=== PATIENT | male | born 1940 | race Caucasian/White ===

== ENCOUNTER 2017-11-20 20:16 | Inpatient (IN) | payer MEDICARE, BC ==
[~2017-11-20] VITALS: Ht 170.2 cm; Wt 61.9 kg
--- NOTE | 2017-11-20 20:20 | NUR ---
TO BED 7 A 77 YO MALE PT BIBA#[id number] FROM HOME FOR CONSTIPATION X 20 HOURS. PATIENT IS ALERT AND RESPONSIVE, VSS. NAD NOTED. NONDIAPHORETIC. GOWNED COMFORT MEASURES RENDERED.
[2017-11-20] MEDS ORDERED: IV NS 0.9% 1,000 ML BAG IV ONE (20:30)
--- NOTE | 2017-11-20 20:40 | NUR ---
STARTED A SALINE LOCK ON THE LAC G18, BLOOD DRAWN AND SENT TO LAB.
[2017-11-20 20:47] LABS: BASOPHILS # (AUTO) 0.1 /CMM (0.0-0.2); BASOPHILS % (AUTO) 0.7 % (0.0-2.0); EOSINOPHILS % (AUTO) 0.3 % (0.0-6.0); HEMATOCRIT 47 % (39-51); HEMOGLOBIN 16.2 g/dL (13.5-17.5); LYMPHOCYTES # (AUTO) 1.1 /CMM (0.8-4.8); LYMPHOCYTES % (AUTO) 8.4 % (20.0-44.0); MEAN CORPUSCULAR HEMOGLOBIN 29 PG (26.0-33.0); MEAN CORPUSCULAR HGB CONC 35 g/dl (31.0-36.0); MEAN CORPUSCULAR VOLUME 84 fL (80-96); MONOCYTES # (AUTO) 0.8 /CMM (0.1-1.30); NEUTROPHILS # (AUTO) 10.6 /CMM (1.8-8.9); NEUTROPHILS % (AUTO) 84.6 % (43.0-81.0); PLATELET COUNT (AUTO) 335 /CMM (150-450); RDW COEFFICIENT OF VARIATION 12.8 (11.5-15.0); RED BLOOD CELL COUNT(AUTO) 5.52 MIL/uL (4.5-6.0); WHITE BLOOD COUNT (AUTO) 12.6 K/uL (4.3-11.0)
[2017-11-20 20:57] LABS: CALCIUM, SERUM 8.7 mg/dL (8.5-10.1); CARBON DIOXIDE 25 mmol/L (21-32); CHLORIDE 87 mmol/L (98-107); CREATININE 0.6 mg/dL (0.6-1.3); GLUCOSE 128 mg/dL (74-106); POTASSIUM 3.8 mmol/L (3.5-5.1); UREA NITROGEN, BLOOD 4 mg/dL (7-18)
[2017-11-20 20:59] LABS: INR 0.94 (0.85-1.15); SODIUM SERUM 120 mmol/L (136-145)
[2017-11-20 21:05] LABS: TROPONIN I < 0.017 ng/mL (0.00-0.056)
[2017-11-20 21:12] LABS: APPEARANCE,URINE Clear (CLEAR); BILIRUBIN,URINE Negative (NEGATIVE); BLOOD, URINE Trace-intact Ery/uL (NEGATIVE); COLOR,URINE Yellow (YELLOW); KETONES,URINE Trace (NEGATIVE); LEUKOCYTE ESTERASE ,URINE Negative (NEGATIVE); NITRITE, URINE Negative (NEGATIVE); PH,URINE 7.5 (5.0-8.0); PROTEIN,URINE Negative (NEGATIVE); UGLUCOSE Negative (NEGATIVE); UROBILINOGEN,URINE 0.2 EU/dL (0.2)
[2017-11-20 21:25] LABS: ALANINE AMINOTRANSFERASE 31 U/L (12-78); ALBUMIN 4.1 g/dL (3.4-5.0); ALKALINE PHOSPHATASE 106 U/L (46-116); ASPARTATE AMINOTRANSFERASE 39 U/L (15-37); BILIRUBIN,DIRECT 0.2 mg/dL (0.0-0.2); BILIRUBIN,TOTAL 1.1 mg/dL (0.2-1.0); LIPASE 130 U/L (73-393); TOTAL PROTEIN, SERUM 7.1 g/dL (6.4-8.2)
[2017-11-20 21:27] LABS: BACTERIA,URINE None seen /HPF (None Seen); SQUAMOUS EPITHELIAL CELL,UR Few /HPF (None Seen); WBC,URINE 0-2 /HPF (0-3)
[2017-11-20] MEDS ORDERED: ASPI-1169 PO (21:50)
--- NOTE | 2017-11-20 21:54 | NUR ---
Report given to Pili MCCARTHY for admission and ulises.
[2017-11-20 22:00] VITALS: BP 136/77
--- NOTE | 2017-11-20 22:05 | NUR ---
TELE/RN NOTES RECEIVED PT. FROM ER VIA [facility]. PT. IS AWAKE, ALERT AND ORIENTED X 2-3. BREATHING EVEN AND UNLABORED ON ROOM AIR. NO SOB, RESPIRATORY DISTRESS OR COMPLAINTS OF PAIN NOTED AT THIS TIME. ORIENTED PT. TO ROOM. PLACED EXTERNAL MODEL HOME SALES GREETER ON PT. CURRENT RHYTHM = SINUS RHYTHM WITH PAC'S HR 73. PT. WITH LEFT AC 18 GAUGE IV SALINE LOCK PRESENT, PATENT AND INTACT. AWAITING ADMITTING ORDERS. BED LOCKED AND IN LOWEST POSITION, SIDE RAILS UP X3, BED ALARM ON, CALL LIGHT WITHIN REACH, WILL CONTINUE TO MONITOR.
--- NOTE | 2017-11-20 22:06 | NUR ---
Transferred patient to tele bed via als protocol, no incident noted.
[2017-11-20] MEDS ORDERED: hydrALAZINE HCL 25 MG TABLET PO PRN (23:00)
[2017-11-20] MEDS ORDERED: ENOXAPARIN SODIUM 40 MG/0.4 ML DISP.SYRIN SQ SCH (23:00)
[2017-11-20] MEDS ORDERED: ACETAMINOPHEN 325 MG TABLET PO PRN (23:00)
[2017-11-20] MEDS ORDERED: MAG HYDROX/AL HYDROX/SIMETH 30 ML UDC PO PRN (23:00)
[2017-11-20] MEDS ORDERED: MAGNESIUM HYDROXIDE 30 ML UDC PO PRN (23:00)
[2017-11-20] MEDS ORDERED: ZOLPIDEM TARTRATE 5 MG TABLET PO PRN (23:00)
[2017-11-20] MEDS ORDERED: Z GUARD REMEDY 2 OZ OINT TP PRN (23:00)
[2017-11-20] MEDS ORDERED: ONDANSETRON HCL/PF 4 MG/2 ML VIAL IVP PRN (23:00)
[2017-11-20] MEDS ORDERED: HYDROCODONE/APAP 5/325MG 1 EACH TABLET PO PRN (23:00)
--- NOTE | 2017-11-20 23:05 | NUR ---
TELE/RN NOTES PT. IS REFUSING PICTURES TO BE TAKEN AT THIS TIME. PT. STATES HE DOESN'T WANT TO BE BOTHERED HE JUST WANTS TO BE LEFT ALONE SO HE CAN SLEEP. WILL ATTEMPT AGAIN AT A LATER TIME. WILL CONTINUE TO MONITOR.
[2017-11-20] MEDS ORDERED: ALBUTEROL FS 2.5 MG/3 ML VIAL.NEB NEB PRN (23:30)
[2017-11-21] VITALS (7 sets, daily range): BP systolic 127–141; BP diastolic 72–81
[2017-11-21] MEDS ORDERED: ENOXAPARIN SODIUM 40 MG/0.4 ML DISP.SYRIN SQ ONE
[2017-11-21] MEDS: IV NS 0.9% 1,000 ML IV PRN ×2 (00:11→17:52)
--- NOTE | 2017-11-21 06:13 | NUR ---
TELE/RN NOTES PT. IS LYING IN BED RESTING. BREATHING EVEN AND UNLABORED ON ROOM AIR. NO SOB, RESPIRATORY DISTRESS OR COMPLAINTS OF PAIN NOTED AT THIS TIME AND THROUGHOUT SHIFT. PT. WITH EXTERNAL POLLUTION CONTROL ENGINEER PRESENT AND INTACT. CURRENT RHYTHM = SINUS RHYTHM HR 80. PT. WITH LEFT AC 18 GAUGEPERIPHERAL IV PRESENT, PATENT AND INTACT. ALL PT. NEEDS MET. BED LOCKED AND IN LOWEST POSITION, SIDE RAILS UP X3, BED ALARM ON, CALL LIGHT WITHIN REACH, WILL ENDORSE TO DAYSHIFT NURSE FOR CONTINUITY OF CARE.
--- NOTE | 2017-11-21 07:00 | NUR ---
MS/RN OPENING NOTE RECEIVED PATIENT IN BED AWAKE. ALERT AND ORIENTED X3. RESPIRATION REGULAR AND UNLABORED. DENIES SOB, PAIN AT THIS TIME. IN NO APPARENT DISTRESS. LEFT ARM G 22 PATENT. PATIENT NPO SINCE DUE TO SCHEDULED NPO. EXPECTING WALLET ASSEMBLER GOING TO OR AT 0730. BED LOW AND LOCKED. SIDE RAIL UP X2. CALL LIGHT WITHIN REACH. WILL CONTINUE TO MONITOR. Addendum: 11/21/17 at 0809 by DANIEL BANDA RN THE NOTE WAS ENTERED ON A WRONG PATIENT
[2017-11-21 07:11] LABS: BASOPHILS % (AUTO) 0.2 % (0.0-2.0); EOSINOPHILS # (AUTO) 0.1 /CMM (0.0-0.7); EOSINOPHILS % (AUTO) 1.1 % (0.0-6.0); HEMATOCRIT 40 % (39-51); HEMOGLOBIN 13.9 g/dL (13.5-17.5); LYMPHOCYTES % (AUTO) 12.4 % (20.0-44.0); MEAN CORPUSCULAR HEMOGLOBIN 30 PG (26.0-33.0); MEAN CORPUSCULAR HGB CONC 35 g/dl (31.0-36.0); MEAN CORPUSCULAR VOLUME 86 fL (80-96); MONOCYTES # (AUTO) 0.7 /CMM (0.1-1.30); MONOCYTES % (AUTO) 8.8 % (2.0-12.0); NEUTROPHILS % (AUTO) 77.5 % (43.0-81.0); PLATELET COUNT (AUTO) 289 /CMM (150-450); RED BLOOD CELL COUNT(AUTO) 4.61 MIL/uL (4.5-6.0); WHITE BLOOD COUNT (AUTO) 7.7 K/uL (4.3-11.0)
--- NOTE | 2017-11-21 07:30 | NUR ---
TELE/RN OPENING NOTE RECEIVED PATIENT IN BED AWAKE. ALERT AND ORIENTED X3. DENIES SOB, PAIN AT THIS TIME. RESPIRATION REGULAR AND UNLABORED. THE PATIENT IN NO APPARENT DISTRESS. LAC G 18 PATENT AND IV INFUSING WITH NO S/S INFILTRATION. BED LOW AND LOCKED. SIDE RAIL UP X3. CALL LIGHT WITHIN REACH. WILL CONTINUE TO MONITOR.
[2017-11-21] MEDS ORDERED: DUTA0.5C15 PO (07:32)
[2017-11-21 07:33] LABS: THYROID STIMULATING HORMONE 1.949 uIU/mL (0.358-3.74)
[2017-11-21 07:42] LABS: CALCIUM, SERUM 7.9 mg/dL (8.5-10.1); CARBON DIOXIDE 23 mmol/L (21-32); CHLORIDE 97 mmol/L (98-107); CREATININE 0.6 mg/dL (0.6-1.3); GLUCOSE 103 mg/dL (74-106); MAGNESIUM 1.9 mg/dL (1.8-2.4); PHOSPHORUS 2.6 mg/dL (2.5-4.9); POTASSIUM 3.6 mmol/L (3.5-5.1); SODIUM SERUM 129 mmol/L (136-145); UREA NITROGEN, BLOOD 4 mg/dL (7-18)
[2017-11-21] MEDS ORDERED: ALBUTEROL FS 2.5 MG/3 ML VIAL.NEB ONE (08:05)
[2017-11-21] MEDS: SENNOSIDES/DOCUSATE SODIUM 1 TAB TABLET PO SCH (08:32)
[2017-11-21] MEDS: ASPIRIN 81 MG TAB.CHEW PO SCH (08:33)
[2017-11-21] MEDS: BOOST PLUS FOOD-VANILLA 237 ML BOX PO SCH ×2 (08:43→17:53)
[2017-11-21 09:36] LABS: IRON, SERUM 63 ug/dl (50-175); TOTAL IRON BINDING CAPACITY 241 ug/dl (250-450)
[2017-11-21] MEDS: ENOXAPARIN SODIUM 40 MG/0.4 ML DISP.SYRIN SQ SCH (11:53)
--- NOTE | 2017-11-21 11:54 | NUR ---
WOUND CARE CONSULT: PT REFUSED SKIN ASSESSMENT. PER NURSING STAFF AND DOCUMENTATION PT HAS SKIN TEAR TO RT ARM, PRESENT ON ADMISSION. RECOMMENDATIONS MADE FOR WOUND CARE BASED ON PHOTO DOCUMENTATION. PT IS AMBULATORY AND CONTINENT. WILL SEE PRN. IN AGREEMENT WITH PLAN OF CARE.
--- NOTE | 2017-11-21 13:00 | NUR ---
TELE/RN SKIN ASSESSMENT PATIENT AGREED ONLY SKIN ASSESSMENT OF THE LOWER LEGS AND ARMS. EXPLAINED RISKS AND BENEFITS , STILL REFUSED TO HAVE COMPLETE SKIN ASSESSMENT.
--- NOTE | 2017-11-21 18:01 | NUR ---
Met with patient,he is alert and oriented.He lives locally alone in a [address] dwelling. Stated he is ambulatory, he use a cane or walker as needed with transfers. Patient is semi-independent with adl's and has a caregiver 5HRS A DAY 5X/week. His pcp is Dr. Kedar Scherer at [facility]. Patient do not want to go to a SNF, he prefer to return home once d/c Addendum: 11/21/17 at 1801 by MARLENA MANZANO RN Amended: Links added.
--- NOTE | 2017-11-21 18:06 | NUR ---
TELE/RN CLOSING NOTE PATIENT UP IN CHAIR. ALERT AND ORIENTED X3. DENIES SOB, PAIN AT THIS TIME. RESPIRATION REGULAR AND UNLABORED. PATIENT AFIB AT 84. IN NO APPARENT DISTRESS. LFA G 22 PATENT AND INFUSING WITH NO S/S INFILTRATION NOTED. GOOD SKIN CARE RENDERED. KEPT CLEAN AND COMFORTABLE. ALL NEEDS ATTENDED AND ANTICIPATED. VERBAL CUES PROVIDED TO KEEP SAFETY AWARENESS HIGH. ENCOURAGED TO PRESS THE CALL LIGHT FOR ASSISTANCE. CALL LIGHT WITHIN REACH. BED LOW AND LOCKED. WILL ENDORSE TO NIGH SHIFT.
--- NOTE | 2017-11-21 19:30 | NUR ---
RN NOTES: RECEIVED AWAKE LYING COMFORTABLY IN BED, IN SEMI FOWLERS POSITION,A/OX3, ON TELE MONITOR SR-80,CONTINENT USING URINAL, INSTRUCT TO COLLECT URINE FOR TEST, NEW URINAL PROVIDED AT BED SIDE, IVF ONGOING NS@75ML/HR,LFA G#22 PATENT AND INTACT,BREATHING SPONTANEOUSLY IN ROOM AIR, NO SOB OR SIGN OF ANY RESPIRATORY DISCOMFORT NOTED, FALL,SAFETY AND ASPIRATION PRECAUTION OBSERVED, BED LOW AND LOCKED, CALL LIGHT WITHIN EASY REACH.
[2017-11-21] MEDS: POLYETHYLENE GLYCOL 3350 17 GM POWD.PACK PO SCH (21:24)
--- NOTE | 2017-11-21 21:30 | NUR ---
RN NOTES COLLECTED URINE SAMPLE, NOTIFIED [facility](LAB), AWAITING FOR P/U OF URINE SAMPLE.
--- NOTE | 2017-11-21 21:37 | NUR ---
RN NOTES: EXPLAINED HE HAS TO TAKE MIRALAX POWDER Q HS, AT FIRST HE WAS HESITANT TO TAKE BUT AFTER THOROUGH EXPLANATION HE AGREED TO TAKE WITH 8 0Z OF WATER.
--- NOTE | 2017-11-22 | NUR ---
RN NOTES: ASLEEP, HE REFUSED TO BE AWAKEN FOR V/S.
[2017-11-22 04:34] VITALS: BP 151/81
--- NOTE | 2017-11-22 06:53 | NUR ---
RN NOTES: CEMETERY WARDEN OFFERED TO CHANGE HIS BEDDINGS AND DO MORNING CARE 2X, PATIENT REFUSED 2X DESPITE EXPLANATION HE WANTS TO SLEEP MORE, ENDORSED FOR CONTINUITY OF CARE, PATIENT IS STILL ASLEEP.
[2017-11-22 07:00] VITALS: BP 149/76
[2017-11-22 08:00] VITALS: BP 153/76
[2017-11-22] MEDS: BOOST PLUS FOOD-VANILLA 237 ML BOX PO SCH ×2 (08:00→17:00)
--- NOTE | 2017-11-22 08:00 | NUR ---
MS RN RECEIVED ON BED, AWAKE,ALERT,ORIENTED X3,NOT IN ANY FORM OF DISTRESS, RESPIRATIONS EVEN AND UNLABORED,NO SOB NOTED, LUNGS HAVE RONCHI BILATERALLY, DENIES PAIN AT THIS TIME, WILL MONITOR PATIENT'S CONDITION.
--- NOTE | 2017-11-22 09:00 | NUR ---
MS MCCARTHY BREAKFAST SERVED,DUE MEDS GIVEN.TOLERATED WELL.
[2017-11-22] MEDS: ASPIRIN 81 MG TAB.CHEW PO SCH (09:13)
[2017-11-22] MEDS: IV NS 0.9% 1,000 ML IV PRN ×2 (09:14→21:07)
[2017-11-22] MEDS: SENNOSIDES/DOCUSATE SODIUM 1 TAB TABLET PO SCH (09:14)
[2017-11-22] MEDS: ENOXAPARIN SODIUM 40 MG/0.4 ML DISP.SYRIN SQ SCH (09:19)
[2017-11-22 13:26] LABS: CALCIUM, SERUM 8.1 mg/dL (8.5-10.1); CARBON DIOXIDE 23 mmol/L (21-32); CHLORIDE 102 mmol/L (98-107); CREATININE 0.7 mg/dL (0.6-1.3); GLUCOSE 151 mg/dL (74-106); POTASSIUM 3.5 mmol/L (3.5-5.1); SODIUM SERUM 138 mmol/L (136-145); UREA NITROGEN, BLOOD 10 mg/dL (7-18)
[2017-11-22 16:00] VITALS: BP 142/77
--- NOTE | 2017-11-22 17:00 | NUR ---
MS RN ON BED, NO DISTRESS NOTED,ALL NEEDS ATTENDED.
--- NOTE | 2017-11-22 17:45 | NUR ---
MS RN ON BED, NO CHANGE OF CONDITION.
--- NOTE | 2017-11-22 19:00 | NUR ---
MS RN OPENING NOTES RECEIVED PT ON BED, AWAKE A/O X3, NO C/O OF PAIN. NOT IN ANY FORM OF DISTRESS, RESPIRATIONS EVEN AND UNLABORED, NO SOB NOTED, SAFETY MEASURES ARE IN PLACE. WILL CONT MONITOR PATIENT..
[2017-11-22 20:00] VITALS: BP 154/86
[2017-11-22] MEDS: POLYETHYLENE GLYCOL 3350 17 GM POWD.PACK PO SCH (21:07)
--- NOTE | 2017-11-23 06:37 | NUR ---
MS RN CLOSING NOTES PT COMFORTABLY ASLEEP AND EASILY AWAKEN, TOLERATING ROOM AIR 99% STABLE CONDITION. RESPIRATION EVEN AND UNLABORED. KEPT CLEAN AND DRY AND COMFORTABLE, ALL NURSING CARE RENDERED. NEEDS ATTENDED AND ANTICIPATED, GOOD SKIN CARE PROVIDED. FREQUENT VISUAL CHECK DONE FOR SAFETY EVERY 2 HOURS. ON LOW BED AT ALL TIMES TO ENSURE SAFETY. SAFE HAZARD FREE ENVIRONMENT PROVIDED. NO COMPLAINS OF PAIN. CALL LIGHT WITHIN EASY TO REACH. WILL ENDORSE NEXT SHIFT CONTINUITY OF CARE.
--- NOTE | 2017-11-23 07:00 | NUR ---
RN OPENING NOTES RECEIVED PATIENT IN BED ALERT ORIENTED. NO ACUTE DISTRESS NOTED.NO SOB NOTED. BREATHING UNLABORED. IV ACCESS PATENT AND INTACT, NO REDNESS OR SWELLING NOTED. SAFETY MEASURES IN PLACE. CALL LIGHT PLACED WITHIN REACH. WILL CONTINUE TO MONITOR ACCORDINGLY.
[2017-11-23 08:00] VITALS: BP 161/81
[2017-11-23] MEDS: SENNOSIDES/DOCUSATE SODIUM 1 TAB TABLET PO SCH (08:44)
[2017-11-23] MEDS: ASPIRIN 81 MG TAB.CHEW PO SCH (08:44)
[2017-11-23] MEDS: ENOXAPARIN SODIUM 40 MG/0.4 ML DISP.SYRIN SQ SCH (08:45)
[2017-11-23] MEDS: BOOST PLUS FOOD-VANILLA 237 ML BOX PO SCH (09:18)
[2017-11-23 09:33] LABS: CALCIUM, SERUM 8.2 mg/dL (8.5-10.1); CARBON DIOXIDE 25 mmol/L (21-32); CHLORIDE 99 mmol/L (98-107); CREATININE 0.8 mg/dL (0.6-1.3); GLUCOSE 128 mg/dL (74-106); MAGNESIUM 1.7 mg/dL (1.8-2.4); PHOSPHORUS 2.5 mg/dL (2.5-4.9); POTASSIUM 3.3 mmol/L (3.5-5.1); SODIUM SERUM 134 mmol/L (136-145); UREA NITROGEN, BLOOD 9 mg/dL (7-18)
[2017-11-23 09:50] LABS: BASOPHILS % (AUTO) 0.3 % (0.0-2.0); EOSINOPHILS # (AUTO) 0.1 /CMM (0.0-0.7); EOSINOPHILS % (AUTO) 1.8 % (0.0-6.0); HEMATOCRIT 44 % (39-51); HEMOGLOBIN 15.3 g/dL (13.5-17.5); LYMPHOCYTES # (AUTO) 0.9 /CMM (0.8-4.8); MEAN CORPUSCULAR HEMOGLOBIN 29 PG (26.0-33.0); MEAN CORPUSCULAR HGB CONC 35 g/dl (31.0-36.0); MEAN CORPUSCULAR VOLUME 85 fL (80-96); MONOCYTES # (AUTO) 0.4 /CMM (0.1-1.30); MONOCYTES % (AUTO) 5.5 % (2.0-12.0); NEUTROPHILS # (AUTO) 6.4 /CMM (1.8-8.9); NEUTROPHILS % (AUTO) 81.4 % (43.0-81.0); PLATELET COUNT (AUTO) 284 /CMM (150-450); RED BLOOD CELL COUNT(AUTO) 5.23 MIL/uL (4.5-6.0); WHITE BLOOD COUNT (AUTO) 7.8 K/uL (4.3-11.0)
--- NOTE | 2017-11-23 11:00 | NUR ---
MS RN NOTES SEEN AND EVALUATED BY DR VEGA WITH NEW ORDERS MADE. NOTED AND CARRIED OUT.
--- NOTE | 2017-11-23 14:10 | NUR ---
GASKET NOTCHER NOTES PATIENT DISCHARGED WITH STABLE VS. NO ACUTE DISTRESS NOTED. NO SOB NOTED. BREATHING UNLABORED. DISCHARGE INSTRUCTIONS GIVEN, SON AT BEDSIDE, INCLUDING FOLLOW UP APPOINTMENT AND DISCHARGE MEDICATIONS. VERBALIZED UNDERSTANDING. IV ACCESS REMOVED, NO BLEEDING NOTED. ALL BELONGINGS ACCOUNTED FOR. WHEELED TO THE LOBBY ACCOMPANIED BY RN AND TRANSFER ENGINEER, ASSISTED TO THE PRIVATE CAR.
== END 2017-11-23 17:57 | disposition home or self-care (01) | DRG 640 ==
LOC: ER 20:18 → TELE 21:50 → MED 11-22 10:49
PROVIDERS: ADMIT Internal Medicine; ATTEND Internal Medicine
DX: E87.1 Hypo-osmolality and hyponatremia (principal); G93.41 Metabolic encephalopathy; R65.10 Systemic inflammatory response syndrome (SIRS) of non-infectious origin without acute organ dysfunction; E86.0 Dehydration; F01.50 Vascular dementia, unspecified severity, without behavioral disturbance, psychotic disturbance, mood disturbance, and anxiety; D72.829 Elevated white blood cell count, unspecified; E78.5 Hyperlipidemia, unspecified; I10 Essential (primary) hypertension; K21.9 Gastro-esophageal reflux disease without esophagitis; R62.7 Adult failure to thrive; F32.9 Major depressive disorder, single episode, unspecified; Z91.81 History of falling; Z73.6 Limitation of activities due to disability; F39 Unspecified mood [affective] disorder; I70.90 Unspecified atherosclerosis; R53.1 Weakness
CPT/HCPCS: 36415; 70450-TC; 71045-TC; 80048-TC; 80076-TC; 81000-TC; 82746; 83540-TC; 83690-TC; 83735-TC; 83935-TC; 84100-TC; 84443-TC; 84484-TC; 85025-TC; 85730-TC; 87040-TC; A4606; A6402; A6403; J1650; J7030; J7040; Z7610